=== PATIENT | female | born 1990 | race Caucasian/White ===

== ENCOUNTER 2023-05-08 04:06 | Emergency (ER) | payer OTHER ==
[~2023-05-08] VITALS: Ht 172.7 cm; Wt 63.5 kg
[2023-05-08 04:41] VITALS: BP 155/95
[2023-05-08] MEDS ORDERED: SULTRIDS PO (06:22)
== END 2023-05-08 06:53 | disposition home or self-care (01) ==
LOC: ER 04:06
DX: L03.011 Cellulitis of right finger (principal)
CPT/HCPCS: 10060; 99283-25; A9270